=== PATIENT | female | born 2000 | race Caucasian/White ===

== ENCOUNTER → 2019-07-05 | Outpatient (REF) | payer OTHER | LOC: M LAB REF 12:38 | PROVIDERS: ATTEND Physician Assistant Medical | DX: J11.1 Influenza due to unidentified influenza virus with other respiratory manifestations (principal) ==

== ENCOUNTER → 2021-09-06 | Outpatient (CLI) | payer OTHER | LOC: M WHC 07:58 | PROVIDERS: ATTEND Physician Assistant | DX: N63.20 Unspecified lump in the left breast, unspecified quadrant (principal) | CPT/HCPCS: 76642; 77065; G0279 ==

== ENCOUNTER → 2022-07-17 | Outpatient (CLI) | payer OTHER, SELFPAY | LOC: M WHC 12:40 | PROVIDERS: ATTEND Physician Assistant | DX: N63.20 Unspecified lump in the left breast, unspecified quadrant (principal) ==

== ENCOUNTER → 2022-07-31 | Outpatient (CLI) | payer OTHER ==
[2022-07-31 11:18] VITALS: BP 118/80
== END ==
LOC: M WHCPRO 10:41
PROVIDERS: ATTEND Surgery
DX: N63.21 Unspecified lump in the left breast, upper outer quadrant (principal)

== ENCOUNTER 2022-08-27 08:25 | Day surgery (SDC) | payer OTHER ==
[~2022-08-27] VITALS: Ht 157.5 cm; Wt 56.6 kg
[~2022-08-27 08:25] MED LIST: HEPARIN SOD (PORCINE) 5000UNITS/ML 1ML VIAL/SYRINGE SQ ONE; ceFAZolin SOD 2 GM in IV 1 EA IV ONE
[2022-08-27] MEDS ORDERED: propofoL 200 MG/20 ML VIAL As Ordered ONE (08:48)
[2022-08-27] MEDS ORDERED: ACETAMINOPHEN 1000MG 100ML IV BAG As Ordered ONE (08:48)
[2022-08-27] MEDS ORDERED: MIDAZOLAM INJ 2MG/2ML VIAL As Ordered ONE (08:48)
[2022-08-27] MEDS ORDERED: LIDOCAINE 2% 100MG/5ML SDV (FOR ANES.) As Ordered ONE (08:49)
[2022-08-27] MEDS ORDERED: fentaNYL 100 MCG/2 ML INJECTION As Ordered ONE (08:49)
[2022-08-27] MEDS ORDERED: ONDANSETRON 4MG 2ML VIAL As Ordered ONE (08:52)
[2022-08-27] MEDS ORDERED: LR 1,000 ML IV SCH (09:20)
[2022-08-27] MEDS ORDERED: BUPIVACAINE HCL 0.25% 30ML VIAL As Ordered ONE (09:32)
[2022-08-27] MEDS ORDERED: LIDOCAINE 1% SDV 30ML VIAL As Ordered ONE (09:32)
[2022-08-27] MEDS ORDERED: TRAM50TA2 PO (11:24)
[2022-08-27] MEDS ORDERED: fentaNYL 100 MCG/2 ML INJECTION IV PRN (11:35)
[2022-08-27] MEDS ORDERED: oxyCODONE 5MG TAB PO PRN (11:35)
[2022-08-27] MEDS ORDERED: ONDANSETRON 4MG 2ML VIAL IV PRN (11:35)
[2022-08-27] MEDS ORDERED: MORPHINE 2 MG/ML 1ML VIAL IV PRN (11:35)
[2022-08-27 13:30] VITALS: BP 116/67
== END 2022-08-27 13:40 | disposition home or self-care (01) ==
LOC: M SDC 08:25
PROVIDERS: ATTEND Surgery
DX: D24.2 Benign neoplasm of left breast (principal); F17.200 Nicotine dependence, unspecified, uncomplicated
CPT/HCPCS: 19120; 36415; 81025; 86850; 86900; 86901; 88307; A4648; J0131; J0690; J1100; J2250; J2405; J3010; S0020

== ENCOUNTER → 2023-07-01 | Outpatient (CLI) | payer OTHER ==
[~2023-07-01] MED LIST changes: -HEPARIN SOD (PORCINE) 5000UNITS/ML 1ML VIAL/SYRINGE SQ ONE; +TRAM50TA2 PO; -ceFAZolin SOD 2 GM in IV 1 EA IV ONE
== END ==
LOC: M RAD 09:46
PROVIDERS: ATTEND Obstetrics & Gynecology
DX: Z34.92 Encounter for supervision of normal pregnancy, unspecified, second trimester (principal); Z3A.19 19 weeks gestation of pregnancy

== ENCOUNTER → 2023-07-04 | Outpatient (CLI) | payer OTHER ==
[2023-07-04 14:01] LABS: HEMOGLOBIN 11.6 g/dl (12.0-15.5); MEAN CORPUSCULAR HEMOGLOBIN 28.6 pg (27.0-33.0); MEAN CORPUSCULAR HGB CONC 32.2 g/dl (32.0-36.5); MEAN CORPUSCULAR VOLUME 88.7 fl (80.0-96.0); PLATELET COUNT, AUTOMATED 271 10^3/uL (150-450); RED BLOOD COUNT 4.06 10^6/uL (4.00-5.40); WHITE BLOOD COUNT 9.9 10^3/uL (4.0-10.0)
[2023-07-04 14:49] LABS: HIV 1&2 SCREEN NEGATIVE (NEGATIVE)
[2023-07-04 14:58] LABS: HEPATITIS C VIRUS ABY INDEX 0.05 INDEX (<0.8)
[2023-07-04 16:01] LABS: GC DNA AMPLIFICATION NEGATIVE (NEGATIVE)
== END ==
LOC: M PLALAB 10:49
PROVIDERS: ATTEND Obstetrics & Gynecology
DX: Z34.91 Encounter for supervision of normal pregnancy, unspecified, first trimester (principal)

== ENCOUNTER → 2023-08-28 | Outpatient (CLI) | payer OTHER | LOC: M WHC 08:48 | PROVIDERS: ATTEND Specialist | DX: Z34.02 Encounter for supervision of normal first pregnancy, second trimester (principal) ==

== ENCOUNTER → 2023-08-29 | Outpatient (CLI) | payer BC, OTHER ==
[2023-08-29 14:28] LABS: HEMATOCRIT 33.8 % (36.0-47.0); HEMOGLOBIN 10.8 g/dl (12.0-15.5); MEAN CORPUSCULAR HEMOGLOBIN 28.8 pg (27.0-33.0); MEAN CORPUSCULAR VOLUME 90.1 fl (80.0-96.0); PLATELET COUNT, AUTOMATED 252 10^3/uL (150-450); RED BLOOD COUNT 3.75 10^6/uL (4.00-5.40); WHITE BLOOD COUNT 9.3 10^3/uL (4.0-10.0)
== END ==
LOC: M PLALAB 10:12
PROVIDERS: ATTEND Advanced Practice Midwife
DX: Z34.02 Encounter for supervision of normal first pregnancy, second trimester (principal)

== ENCOUNTER → 2023-10-15 | Outpatient (CLI) | payer OTHER | LOC: M RAD 10:33 | PROVIDERS: ATTEND Obstetrics & Gynecology | DX: Z34.93 Encounter for supervision of normal pregnancy, unspecified, third trimester (principal); Z3A.34 34 weeks gestation of pregnancy ==

== ENCOUNTER → 2023-10-27 | Outpatient (REF) | payer BC, OTHER | LOC: M PLALAB 15:05 | PROVIDERS: ATTEND Obstetrics & Gynecology | DX: Z34.83 Encounter for supervision of other normal pregnancy, third trimester (principal); Z3A.36 36 weeks gestation of pregnancy ==

== ENCOUNTER 2023-11-08 12:53 | Outpatient (CLI) | payer OTHER ==
[~2023-11-08] VITALS: Ht 157.5 cm; Wt 92.7 kg
[2023-11-08] MEDS ORDERED: IRON27TA2 PO (13:16)
[2023-11-08] MEDS ORDERED: PRENTAB9 PO (13:16)
[2023-11-08 13:17] VITALS: BP 131/75
[2023-11-08 14:35] VITALS: BP 118/61
[2023-11-08 14:36] LABS: HEMATOCRIT 36.4 % (36.0-47.0); MEAN CORPUSCULAR HEMOGLOBIN 28.8 pg (27.0-33.0); MEAN CORPUSCULAR VOLUME 87.5 fl (80.0-96.0); PLATELET COUNT, AUTOMATED 257 10^3/uL (150-450); RED BLOOD COUNT 4.16 10^6/uL (4.00-5.40); WHITE BLOOD COUNT 9.5 10^3/uL (4.0-10.0)
[2023-11-08 14:40] LABS: ALBUMIN 2.5 G/DL (3.2-5.2); ALKALINE PHOSPHATASE 139 U/L (46-116); ALT/SGPT 15 U/L (7.0-40); AST/SGOT 15 U/L (<34); BILIRUBIN,TOTAL 0.3 MG/DL (0.3-1.2); BLOOD UREA NITROGEN 9 MG/DL (9-23); CALCIUM LEVEL 8.7 MG/DL (8.5-10.1); CARBON DIOXIDE LEVEL 22 MMOL/L (20-31); CHLORIDE LEVEL 109 MMOL/L (98-107); GLOMERULAR FILTRATION RATE > 60.0 (>60); GLUCOSE, FASTING 69 MG/DL (60-100); POTASSIUM SERUM 3.8 MMOL/L (3.5-5.1); SODIUM LEVEL 137 MMOL/L (136-145); TOTAL PROTEIN 5.7 G/DL (5.7-8.2)
== END 2023-11-08 15:13 | disposition home or self-care (01) ==
LOC: M LDO 12:53
PROVIDERS: ATTEND Obstetrics & Gynecology
DX: O26.893 Other specified pregnancy related conditions, third trimester (principal); R21 Rash and other nonspecific skin eruption; Z3A.38 38 weeks gestation of pregnancy
CPT/HCPCS: 36415; 59025; 76815; 80053; 82542; 85027; G0463

== ENCOUNTER 2023-11-15 11:05 | Inpatient (IN) | payer OTHER ==
[2023-11-15] VITALS (44 sets, daily range): BP systolic 97–142; BP diastolic 35–88; O2SAT 98
[~2023-11-15] VITALS: Ht 157.5 cm; Wt 94.9 kg
[~2023-11-15 11:05] MED LIST changes: +IRON27TA2 PO; +PRENTAB9 PO
[2023-11-15] MEDS ORDERED: TUMS500C PO (11:49)
[2023-11-15] MEDS ORDERED: HOME MED LIST COMPLETE! XX SCH (11:50)
[2023-11-15] MEDS ORDERED: CARBOPROST TROMETHAMINE 250 MCG/ML AMP IM PRN (12:00)
[2023-11-15] MEDS ORDERED: OXYTOCIN DRIP 30 UNITS in IV 1 EA IV PRN (12:00)
[2023-11-15] MEDS ORDERED: LACTATED RINGER'S 1000 ML IV PRN (12:00)
[2023-11-15] MEDS ORDERED: METHYLERGONOVINE MALEATE 0.2MG/ML 1ML VIAL IM PRN (12:00)
[2023-11-15] MEDS ORDERED: TRANEXAMIC ACID INJection 1,000 MG in NS 100 ML IV PRN (12:00)
[2023-11-15 12:23] LABS: HEMATOCRIT 37.3 % (36.0-47.0); HEMOGLOBIN 12.6 g/dl (12.0-15.5); MEAN CORPUSCULAR HEMOGLOBIN 29.4 pg (27.0-33.0); MEAN CORPUSCULAR HGB CONC 33.8 g/dl (32.0-36.5); MEAN CORPUSCULAR VOLUME 87.1 fl (80.0-96.0); PLATELET COUNT, AUTOMATED 232 10^3/uL (150-450); RED BLOOD COUNT 4.28 10^6/uL (4.00-5.40); WHITE BLOOD COUNT 7.9 10^3/uL (4.0-10.0)
[2023-11-15] MEDS: OXYTOCIN DRIP 30 UNITS in IV 1 EA IV SCH (12:46)
[2023-11-15] MEDS: LR 1,000 ML IV SCH (12:46)
[2023-11-15 13:34] LABS: HEPATITIS C VIRUS ABY INDEX < 0.02 INDEX (<0.8)
[2023-11-15] MEDS ORDERED: NALOXONE INJ 0.4MG/1ML VIAL IV PRN (14:45)
[2023-11-15] MEDS ORDERED: LR 500 ML IV PRN (14:45)
[2023-11-15] MEDS ORDERED: diphenhydrAMINE 50MG/ML VIAL IV PRN (14:45)
[2023-11-15] MEDS ORDERED: EPIDURAL/PCA KEYS XX PRN (14:45)
[2023-11-15] MEDS ORDERED: ePHEDrine SULFATE 25 MG/5 ML(5MG/ML) SYRINGE IVP PRN (14:45)
[2023-11-15] MEDS: FENTANYL/ROPIVACAINE/NACL BAG 100 ML EPIDURAL SCH (15:45)
[2023-11-15] MEDS: CALCIUM CARBONATE 500 MG CHEW U/D PO ONE (16:42)
[2023-11-15] MEDS: ONDANSETRON 4MG 2ML VIAL IV PRN (18:13)
[2023-11-15] MEDS: ACETAMINOPHEN 500 MG TAB PO ONE (21:00)
[2023-11-15] MEDS: diphenhydrAMINE 50MG/ML VIAL IV ONE (22:44)
[2023-11-16] VITALS (11 sets, daily range): BP systolic 104–135; BP diastolic 53–88; TEMP 98; O2SAT 96–100
[2023-11-16] MEDS: AZITHROMYCIN INJ 500 MG, VIAL MATE ADAPTER 1 EACH in NS 250 ML IV ONE (00:58)
[2023-11-16] MEDS: BICITRA 30ML SOLN UDC PO ONE (00:58)
[2023-11-16] MEDS ORDERED: METOCLOPRAMIDE INJ 10MG/2ML VIAL IV PRN (01:15)
[2023-11-16] MEDS ORDERED: NALOXONE INJ 0.4MG/1ML VIAL IV PRN ×2 (01:15)
[2023-11-16] MEDS ORDERED: SLF 3 ML SYR IV SCH (01:15)
[2023-11-16] MEDS ORDERED: ONDANSETRON 4MG 2ML VIAL IV PRN (01:15)
[2023-11-16] MEDS ORDERED: diphenhydrAMINE 50MG/ML VIAL IV PRN (01:15)
[2023-11-16] MEDS ORDERED: **NOTE PATIENT COMMENT** MISC XX SCH (01:15)
[2023-11-16] MEDS ORDERED: NORCO, ANEXSIA 5/325MG TABLET (HYDROcodone/ACETAMINOPHEN) PO PRN (01:15)
[2023-11-16] MEDS: ceFAZolin SOD 2 GM in IV 1 EA IV ONE (01:29)
[2023-11-16] MEDS ORDERED: OXYTOCIN 30UNITS IN 0.9% NaCl 500ML IV BAG As Ordered ONE (01:48)
[2023-11-16] MEDS ORDERED: ACETAMINOPHEN 1000MG 100ML IV BAG As Ordered ONE (01:48)
[2023-11-16] MEDS ORDERED: METOCLOPRAMIDE INJ 10MG/2ML VIAL As Ordered ONE (01:48)
[2023-11-16] MEDS ORDERED: KETOROLAC 60MG 2ML VIAL As Ordered ONE (01:48)
[2023-11-16] MEDS ORDERED: LIDOCAINE 2% W/EPINEPHRINE 20ML VIAL **PRES FREE As Ordered ONE (01:48)
[2023-11-16] MEDS ORDERED: MORPHINE PRES-FREE INJ 10 MG/10 ML VIAL As Ordered ONE (01:48)
[2023-11-16] MEDS ORDERED: ONDANSETRON 4MG 2ML VIAL As Ordered ONE (01:48)
[2023-11-16] MEDS ORDERED: SODIUM BICARBONATE 8.4% INJ 50MEQ 50ML VIAL As Ordered ONE (01:49)
[2023-11-16] MEDS: OXYTOCIN DRIP 30 UNITS in IV 1 EA IV SCH (02:35)
[2023-11-16] MEDS ORDERED: oxyCODONE 5MG TAB PO PRN ×2 (02:35)
[2023-11-16] MEDS ORDERED: RHO(D) IMMUNE GLOBULIN/MALTOSE 500MCG(2500IU)/2.2ML VIAL (WINRHO) IM SCH (02:35)
[2023-11-16] MEDS ORDERED: DOCUSATE SODIUM 100MG CAPSULE PO PRN (02:35)
[2023-11-16] MEDS ORDERED: SIMETHICONE 80MG CHEW TAB PO PRN (02:35)
[2023-11-16] MEDS ORDERED: OXYC-517 PO (02:43)
[2023-11-16] MEDS ORDERED: COLA100C5 PO (02:43)
[2023-11-16] MEDS ORDERED: ACET-683 PO (02:43)
[2023-11-16] MEDS ORDERED: IBUP-1022 PO (02:43)
[2023-11-16] MEDS: ACETAMINOPHEN 500 MG TAB PO SCH (03:00)
[2023-11-16] MEDS: PRENATAL VITAMINS CHEWABLE TABLET PO SCH (08:49)
[2023-11-16] MEDS: KETOROLAC 30 MG/ML 1ML VIAL IV SCH (08:49)
[2023-11-17 02:00] VITALS: BP 125/65; O2SAT 98
[2023-11-17] MEDS ORDERED: IBUPROFEN 600MG TAB PO SCH (02:00)
[2023-11-17] MEDS: IBUPROFEN 600MG TAB PO SCH (03:24)
[2023-11-17 06:00] VITALS: BP 120/61; O2SAT 98
[2023-11-17 08:13] LABS: HEMATOCRIT 28.5 % (36.0-47.0); MEAN CORPUSCULAR HEMOGLOBIN 28.8 pg (27.0-33.0); MEAN CORPUSCULAR HGB CONC 32.3 g/dl (32.0-36.5); MEAN CORPUSCULAR VOLUME 89.1 fl (80.0-96.0); PLATELET COUNT, AUTOMATED 182 10^3/uL (150-450); WHITE BLOOD COUNT 12.7 10^3/uL (4.0-10.0)
[2023-11-17 08:34] LABS: HEMOGLOBIN 9.2 g/dl (12.0-15.5)
[2023-11-17 13:59] VITALS: BP 123/70; O2SAT 100
[2023-11-17 18:00] VITALS: BP 106/57; O2SAT 100
[2023-11-17 22:00] VITALS: BP 121/66; O2SAT 100
[2023-11-18 02:00] VITALS: BP 130/72; O2SAT 98
[2023-11-18 06:00] VITALS: BP 110/57; O2SAT 99
[2023-11-18] MEDS: MEASLES,MUMPS,RUBELLA VACCINE INJ (MMR-II) SC.IMMUN ONE (09:00)
[2023-11-18 10:00] VITALS: BP 108/63; O2SAT 98
== END 2023-11-18 12:40 | disposition home or self-care (01) | DRG 788 ==
LOC: M LDI 11:05 → M OBS 11-16 03:55
PROVIDERS: ADMIT Obstetrics & Gynecology; ATTEND Obstetrics & Gynecology
PROC: 10907ZC Drainage of Amniotic Fluid, Therapeutic from Products of Conception, Via Natural or Artificial Opening (ICD-10-PCS; 2023-11-15)
PROC: 3E0P7GC Introduction of Other Therapeutic Substance into Female Reproductive, Via Natural or Artificial Opening (ICD-10-PCS; 2023-11-15)
PROC: 10D00Z1 Extraction of Products of Conception, Low, Open Approach (ICD-10-PCS; principal; 2023-11-16 00:48)
DX: O26.86 Pruritic urticarial papules and plaques of pregnancy (PUPPP) (principal); Z37.0 Single live birth; Z3A.39 39 weeks gestation of pregnancy; O77.0 Labor and delivery complicated by meconium in amniotic fluid; O62.0 Primary inadequate contractions; O76 Abnormality in fetal heart rate and rhythm complicating labor and delivery